=== PATIENT | male | born 1945 | race Caucasian/White ===

== ENCOUNTER → 2017-03-10 | Outpatient (CLI) | payer OTHER ==
[~2017-03-10] MED LIST: ALLO300T2 PO; AMLO-110 PO; ASPI81TA28 PO; ATOR-26 PO; BUPR100T8 PO; CLOP1TAB15 PO; COEN100C11 PO; CYAN100020 PO; CYCL10TA6 PO; DOXA2TAB PO; ESCI1TAB6 PO; GLC/500 PO; GLIM2TAB2 PO; HYDR-4383 PO; INSU1.2I SQ; LISI40TA PO; LORA-741 PO; METO50TA7 PO; PRLSR20 PO
--- NOTE | 2017-03-10 13:30 | DIAGNOSTIC IMAGING REPORT ---
LUMBAR SPINE 6 VIEWS CLINICAL HISTORY: Chronic low back pain. Status post laminectomy. FINDINGS: AP, lateral, flexion, extension, and bilateral oblique views of the lumbar spine are obtained. No prior studies are available for comparison at the time of dictation. The skeletal structures are osteopenic. Vertebral body height and alignment are maintained throughout the lumbar spine. No inducible bony subluxation is identified on the flexion/extension views. Anterior osteophytes are seen throughout. There is evidence of previous laminectomy in the lower lumbar region. Moderate facet arthropathy is seen in the lower lumbar spine. Moderate disc space narrowing is seen at L5-S1. Mild degenerative disc space narrowing is seen at the remaining lumbar levels. Tiny anterior osteophytes are seen throughout. The bony pelvis is intact as imaged. Mild sclerotic change is noted in the sacroiliac joints. There is a nonobstructed abdominal bowel gas pattern noting moderate clonic fecal retention. Nonobstructing left renal calculi are noted. IMPRESSION: 1. No acute bony abnormality is seen involving the lumbar spine. 2. Osteopenia with postoperative and spondylotic changes as above. Dictated: 03/10/2017 1:02 PM Transcribed: 03/10/2017 1:29 PM Madiha Electronically signed by: Wily De La Cruz M.D. 03/10/2017 1:37 PM Dictated Date/Time: 03/10/2017 1:02 PM
== END | disposition home or self-care (01) ==
LOC: C.RADBC 11:45
PROVIDERS: ATTEND Physician Assistant
DX: M54.5 Low back pain (principal); M96.1 Postlaminectomy syndrome, not elsewhere classified; M85.88 Other specified disorders of bone density and structure, other site; M47.816 Spondylosis without myelopathy or radiculopathy, lumbar region